=== PATIENT | female | born 1985 | race Caucasian/White ===

== ENCOUNTER 2019-11-13 21:06 | Emergency (ER) | payer BC, OTHER, SELFPAY ==
[2019-11-13 21:04] VITALS: BP 152/87; PULSE 100; RESP 18; TEMP 37.3; O2SAT 98
--- NOTE | 2019-11-13 21:16 | ED.WOUNDLAC ---
HPI - Wound/Laceration General Chief Complaint: Wound/Laceration Stated Complaint: R leg lac Time Seen by Provider: 11/13/19 21:08 Source: RN notes reviewed History of Present Illness HPI narrative: Patient presents emergency department from home for right barnes laceration. Patient states that approximate 1 hour prior to arrival she was walking and tripped striking her leg on a piece of plastic that lacerated her right anterior barnes and she denies any other trauma or injury last tetanus shot was in 2017. Patient notes pain to the leg with mild bleeding denies any other symptoms at this time Related Data Home Medications Medication Instructions Recorded Confirmed atorvastatin 10 mg PO DAILY 11/13/19 citalopram [Celexa] 40 mg PO DAILY 11/13/19 ergocalciferol (vitamin D2) 1,250 mcg PO WEEKLY 11/13/19 [Vitamin D2] omeprazole 20 mg PO BID 11/13/19 Allergies Allergy/AdvReac Type Severity Reaction Status Date / Time No Known Allergies Allergy Verified 11/13/19 21:07 Review of Systems Review of Systems: Narrative: Gen.: Denies fevers or chills Musculoskeletal notes mild leg pain Neuro: Denies numbness, tingling, weakness Skin: See HPI Endo: Denies DM PMFSH Past Medical History Medical History (Updated 11/13/19 @ 22:23 by Vernon Rousseau DO) Patient denies significant medical history Social History Social History (Updated 11/13/19 @ 21:16 by Vernon Rousseau DO) Smoking status: Never smoker Exam Narrative: Exam Narrative: APPEARANCE: No acute distress, nontoxic, resting in bed Eyes: EOMI HEENT: Normocephalic, atraumatic, RESPIRATORY: No respiratory distress MUSCULOSKELETAl: No tenderness to the right knee or ankle full range of motion of both, right dorsalis pedis pulse 2+, neurovascular intact NEURO: Awake and alert. Following commands, speech normal, no focal deficits SKIN:: Warm, dry. Normal 6 cm V-shaped laceration over right anterior barnes and is linear and deep with mild venous bleeding and fat protrusion Course Course Emergency Course: Discussed with patient results of workup and diagnosis. Discussed need for follow-up with primary care, proper use of medication, and reasons to return to the emergency department. Patient understands and agrees to current treatment plan Vital Signs Vital signs: Vital Signs Temperature 99.1 F 11/13/19 21:04 Pulse Rate 100 11/13/19 21:04 Respiratory Rate 18 11/13/19 21:04 Blood Pressure 152/87 H 11/13/19 21:04 Pulse Oximetry 98 11/13/19 21:04 Temperature 99.1 F 11/13/19 21:04 Pulse Rate 100 11/13/19 21:04 Respiratory Rate 18 11/13/19 21:04 Blood Pressure 152/87 H 11/13/19 21:04 Pulse Oximetry 98 11/13/19 21:04 Procedures Laceration Laceration 1: ====== Skin Level ====== ====== Subcutaneous Layer ====== ====== Muscle Layer ====== ====== Tendon Layer ====== Dressing: Verbal consent was obtained prior to the procedure. The wound was cleaned with Betadine and irrigated with copious amounts of normal saline. Lidocaine 1% with epinephrine was used for anesthesia. Wound was explored is no foreign body seen. The wound was then closed with 12 3-0 nylon in simple interrupted fashion. A sterile dressing was applied following the procedure. Patient tolerated the procedure well Discharge Plan Discharge Clinical Impression: Laceration of leg, right Patient Disposition: Home, Self-Care Condition: Stable Instructions: Antibiotic Form, Laceration (ED) Additional Instructions: Return for increasing pain bleeding from the wound site infection any other symptoms of concern. Your stitches need to be removed in 7-10 days and you may go to your physician or return to the emergency department for removal. Prescriptions: New ibuprofen [IBU] 600 mg tablet 600 mg PO Q6H PRN (Reason: pain) Qty: 20 RF: 0 No Action citalopram [Celexa] 40 mg Tablet 40 mg PO DAILY RF: 0 atorvastati
[2019-11-13 22:48] VITALS: BP 146/72; PULSE 89; RESP 14; TEMP 36.6; O2SAT 99
== END 2019-11-13 22:52 | disposition home or self-care (01) ==
PROVIDERS: Emergency Provider Emergency Medicine; PCP Family Medicine
DX: S81.811A Laceration without foreign body, right lower leg, initial encounter (principal); W01.118A Fall on same level from slipping, tripping and stumbling with subsequent striking against other sharp object, initial encounter
CPT/HCPCS: 12002; 99283

== ENCOUNTER 2022-02-11 14:32 | Emergency (ER) | payer OTHER, SELFPAY ==
--- NOTE | 2022-02-11 14:51 | ED.BACK ---
HPI - Back Pain/Injury General Chief Complaint: Back Pain/Injury Stated Complaint: back spasm Time Seen by Provider: 02/11/22 14:52 Source: patient, RN notes reviewed and old records reviewed Mode of arrival: ambulatory Limitations: no limitations History of Present Illness HPI Narrative: 36 year old female presents to [facility] care with complaints of having upper back spasms which rotate around her ribs to the epigastric region since last night. Patient states she was rubbing her back against the corner of the wall massaging her back before she went to bed. Reports she woke up around midnight with severe pain to the upper back which radiated around to the epigastric. Pain is increased with breathing deeply with some movements. Patient is concerned she needs her gallbladder checked. She reports that she does not smoke cigarettes she does smoke daily marijuana, small amounts, states history of daily drinking since October 2019 till about 2 weeks ago. Patient reports that she is on control NuvaRing, denies any recent travel or any history of abnormal blood clotting in family MD elicited complaint: back pain and other (epigastric pain, pain with deep breathing) Onset (ago): hour(s) (last pm) Pain scale (0-10): 5 Quality: sharp Related Data Home Medications Medication Instructions Recorded Confirmed atorvastatin 10 mg tablet 10 mg PO DAILY 11/13/19 02/11/22 citalopram 40 mg tablet (Celexa) 40 mg PO DAILY 11/13/19 02/11/22 ergocalciferol (vitamin D2) 1,250 1,250 mcg PO WEEKLY 11/13/19 02/11/22 mcg (50,000 unit) capsule (Vitamin D2) omeprazole 20 mg tablet,delayed 20 mg PO BID 11/13/19 02/11/22 release Allergies Allergy/AdvReac Type Severity Reaction Status Date / Time No Known Allergies Allergy Verified 02/11/22 14:51 Review of Systems Review of Systems: CONSTITUTIONAL: Denies fever, chills, or sweats. EYES: Denies visual changes, redness, or discharge. ENT: Denies rhinorrhea, congestion, sore throat, no otalgia. CARDIOVASCULAR: Denies chest pain, palpitations, or edema. RESPIRATORY: Denies cough or dyspnea. GASTROINTESTINAL:positive for upper epigastric abdominal pain,no nausea, vomiting, or diarrhea. GENITOURINARY: Denies dysuria or hematuria. SKIN: Denies rash or itching. MUSCULOSKELETAL: Thoracic back pain radiating along ribs to epigastric area,no joint pain, or myalgia. NEUROLOGIC: Denies headache, numbness, or weakness. PSYCHIATRIC: Positive for history of anxiety or depression.anxious All systems reviewed & are unremarkable except as noted in HPI and below PMFSH Past Medical History Medical History (Updated 02/13/22 @ 20:19 by Aspen Carrillo NP) Anxiety and depression Elevated cholesterol Surgical History Surgical History (Updated 02/13/22 @ 20:20 by Aspen Carrillo NP) History of hernia surgery as child Social History Social History (Updated 02/11/22 @ 19:17 by Aspen Carrillo NP) Smoking status: Never smoker Alcohol use details: reports drank daily till about 2 weeks ago from october of 2019 Substance use type: marijuana Living arrangements: with family Gender identity (if verbalized by the patient): Female Comments At time of signature, agree with nursing past medical, surgical, social and family history. There is no relevant family history pertinent to the presenting complaint Exam Narrative: GENERAL: Well-appearing, well-nourished, and in no some distress. anxious HEAD: Normocephalic, atraumatic. EYES: PERRLA and EOMI. ENT: Nares clear, clear rhinorrhea no epistaxis. Mucous membranes moist. TM 's normal with good light reflex, throat pink with no lesions or swelling of tonsils NECK: Supple. no lymphadenopathy CHEST: Clear to auscultation. No respiratory distress.SAO2 99% on room air,,Pain to thoracic area of back radiating around to front of chest epigastric area with increase with deep breathing and movement HEART: Regular rate and rhythm. No murmur heard. Normal p
[2022-02-11 14:53] VITALS: BP 142/85; PULSE 102; RESP 18; TEMP 36.3; O2SAT 99
--- NOTE | 2022-02-11 15:10 | ECG_ITS ---
Measurements Intervals [place] Rate: 100 P: 51 MN: 157 QRS: 1 QRSD: 81 T: 10 QT: 329 QTc: 425 Interpretive Statements SINUS TACHYCARDIA POSSIBLE LEFT ATRIAL ENLARGEMENT CONSIDER INFERIOR INFARCT, AGE INDETERMINATE BORDERLINE T WAVE ABNORMALITY- ANTERIOR LEADS BASELINE ARTIFACT- I, III ABNORMAL ECG NO PREVIOUS ECG AVAILABLE FOR COMPARISON Electronically Signed On 02-11-2022 15:55:27 CDT by Jamshid Durham D.O.
== END 2022-02-11 15:48 | disposition short-term general hospital (02) ==
PROVIDERS: Emergency Provider Registered Nurse; PCP Family Medicine
DX: M54.6 Pain in thoracic spine (principal); R10.13 Epigastric pain; F12.90 Cannabis use, unspecified, uncomplicated
CPT/HCPCS: 93005; 99213; G0463

== ENCOUNTER 2022-02-11 15:47 | Emergency (ER) | payer OTHER, SELFPAY ==
[2022-02-11] VITALS (30 sets, daily range): BP systolic 137–155; BP diastolic 77–91; PULSE 87–102; RESP 12–27; TEMP 36.7; O2SAT 96–100
--- NOTE | ~2022-02-11 | XR_ITS ---
XR chest 2V DATE: 02/11/2022 16:58 INDICATION: Upper chest pain with inspiration, cough TECHNIQUE: PA and lateral views COMPARISON: None FINDINGS: Heart size is within normal range. No hilar or mediastinal enlargement. No pulmonary infilt rate or consolidation, pleural effusion or pulmonary vascular congestion or pneumothorax. IMPRESSION: No active cardiopulmonary disease Reviewed, dictated and finalized at location B.
--- NOTE | ~2022-02-11 | CT_ITS ---
EXAMINATION: CTA chest PE abdomen pel DATE: 02/11/2022 20:31 INDICATION: Chest pain, tachycardia and elevated d-dimer. Epigastric pain to palpation. TECHNIQUE: Computed tomography (CT) pulmonary angiogram of the chest was performed with 100 mL Omnipa que-350 intravenous contrast. Additional 3D reconstructions utilizing coronal maximum intensity proje ction (MIP) were performed. CT of the abdomen and pelvis was performed with intravenous contrast util izing the same contrast bolus following a short delay. Automated exposure control and iterative recon struction technique were employed. The dose-length product was 2035.68 mGy-cm. COMPARISON: None FINDINGS: Chest: Good contrast opacification of the pulmonary arteries. There is mild streak artifact from dense contr ast in the superior vena cava and right atrium. Mild respiratory motion at the lung bases which mildl y decreases sensitivity in some of the smaller basilar subsegmental pulmonary arteries. No pulmonary embolism. Mild dependent atelectasis in the bilateral lower lobes. Additional mild discoid atelectasi s in the anterior basilar segment of the left lower lobe. No pneumonia, pulmonary edema, pleural effu agueda or pneumothorax. Heart size is normal. No pericardial effusion. Thoracic aorta is normal in pasha itz with no dissection. No pathologically enlarged thoracic lymphadenopathy. Mild thoracic spondylosi s. Abdomen/pelvis: Diffuse hepatic steatosis. Gallbladder, spleen, pancreas, bilateral adrenal glands and kidneys are no rmal. Bladder, uterus and bilateral adnexa are normal. Likely contraceptive ring at the vaginal vault . Diffuse fatty infiltration of the colonic wall likely related to body habitus. No bowel obstruction . Normal appendix. No free intraperitoneal gas or fluid. No pathologically enlarged abdominal or pelv ic lymphadenopathy. Transitional L1 segment with left-sided hypoplastic riblet, transitional S1 segme nt partially lumbarized on the left. IMPRESSION: 1. No pulmonary embolism or other acute cardiopulmonary disease. 2. No acute intra-abdominal/pelvic process. 3. Diffuse hepatic steatosis. Reviewed, dictated and finalized at location A.
--- NOTE | 2022-02-11 15:54 | ECG_ITS ---
Measurements Intervals [place] Rate: 93 P: 53 GA: 158 QRS: 11 QRSD: 79 T: 29 QT: 332 QTc: 413 Interpretive Statements SINUS RHYTHM POSSIBLE LEFT ATRIAL ENLARGEMENT CONSIDER INFERIOR INFARCT, AGE INDETERMINATE ABNORMAL ECG COMPARED TO ECG 02/11/2022 15:18:52 SINUS RHYTHM NOW PRESENT Electronically Signed On 02-11-2022 19:34:29 CDT by Jamshid Durham D.O.
[2022-02-11 17:23] LABS: Basophils Percent Auto 0.2 % (0.2-1.2); Eosinophils Percent Auto 0.3 % (0-4.4); Hematocrit 38.4 % (37.0-47.0); Hemoglobin 12.6 g/dL (12.0-15.0); Immature Granulocyte Absolute 0.03 K/mm3 (0.00-0.031); Immature Granulocyte Percent A 0.3 % (0-0.5); Lymphocytes Percent Auto 10.8 % (18.3-44.2); Mean Corpuscular HGB Conc 32.8 g/dl (32-36); Mean Corpuscular Volume 94.6 fl (80-100); Mean Platelet Volume 9.5 fl (7.4-10.4); Monocytes Absolute Auto 0.5 K/mm3 (0.1-0.6); Monocytes Percent Auto 5.1 % (2.6-8.5); Neutrophils Absolute Auto 7.7 K/mm3 (1.3-6.7); Neutrophils Percent Auto 83.3 % (45.5-73.1); Platelet Count Result 266 k/mm3 (150-375); Red Blood Count 4.06 M/mm3 (4.2-5.4); Red Cell Distribution Width 13.3 % (11.5-14.5); White Blood Count 9.3 K/mm3 (4.5-10.0)
[2022-02-11 17:33] LABS: Alanine Aminotransferase 47 U/L (6-35); Albumin Level 4.5 g/dL (3.5-5.1); Alkaline Phosphatase 106 U/L (38-126); Anion Gap 10 mmol/L (8-16); Aspartate Amino Transferase 39 U/L (14-36); Bilirubin,Total 0.5 mg/dL (0.2-1.3); Blood Urea Nitrogen 5 mg/dL (7-17); Calcium 9.3 mg/dL (8.4-10.2); Carbon Dioxide 23 mmol/L (22-30); Chloride 102 mmol/L (98-107); Estimated CRCL calculation 110 ml/min; Estimated Glomerular Filt Rate > 60; Glucose 101 mg/dL (65-110); Lipase 170 U/L (23-300); Potassium 3.6 mmol/L (3.4-5.0); Sodium 135 mmol/L (137-145)
[2022-02-11 17:35] LABS: Prothrombin Time 12.6 Seconds (11.1-14.7)
[2022-02-11 17:36] LABS: Partial Thromboplastin Time 24.4 SECONDS (22.3-36.8)
[2022-02-11 17:45] LABS: Troponin I < 0.012 ng/mL (0.000-0.034)
--- NOTE | 2022-02-11 18:20 | ED.CHESTPAIN ---
HPI - Chest Pain General Chief Complaint: Chest Pain <AUGUSTO Cole Last Filed: 02/11/22 19:20> Stated Complaint: chest pain sent from <AUGUSTO Cole Last Filed: 02/11/22 19:20> Time Seen by Provider: 02/11/22 18:10 <AUGUSTO Cole Last Filed: 02/11/22 19:20> History of Present Illness HPI narrative: patient is a 36 year old female here for evaluation of chest pain. Patient states the pain is under her rib cage and will radiate to her back. She notes the pain is severe in nature and is unrelieved by any medication. Has never had a pain like this in the past. She denies any shortness of breath, fevers, chills, nausea, vomiting. Notes that she was a daily drinker in the past but quit about 2 weeks ago. Has never had withdrawal seizures. Was sent from urgent care due to her symptoms. <Sydnie You PA-C - Last Filed: 02/11/22 19:20> Related Data Home Medications: Home Medications Medication Instructions Recorded Confirmed atorvastatin 10 mg tablet 10 mg PO DAILY 11/13/19 02/11/22 citalopram 40 mg tablet (Celexa) 40 mg PO DAILY 11/13/19 02/11/22 ergocalciferol (vitamin D2) 1,250 1,250 mcg PO WEEKLY 11/13/19 02/11/22 mcg (50,000 unit) capsule (Vitamin D2) omeprazole 20 mg tablet,delayed 20 mg PO BID 11/13/19 02/11/22 release <AUGUSTO Cole Last Filed: 02/11/22 19:20> Allergies/Adverse Reactions: Allergies Allergy/AdvReac Type Severity Reaction Status Date / Time No Known Allergies Allergy Verified 02/11/22 14:51 <AUGUSTO Cole Last Filed: 02/11/22 19:20> Review of Systems Review of Systems: Gen.: Denies fevers or chills Eyes: Denies eye pain or visual change ENT: Denies congestion Respiratory: Denies shortness of breath or cough CV: Reports chest pain. GI: Denies abdominal pain nausea, emesis or diarrhea denies burning, urgency, frequency or hematuria Musculoskeletal: Denies back pain or muscle pain Neuro: Denies numbness, tingling, weakness or focal weakness Skin: Denies rash Except as documented, all other systems reviewed and negative <Sydine You PA-C - Last Filed: 02/11/22 19:20> [facility] Past Medical History Medical History: Medical History (Updated 02/13/22 @ 20:19 by Aspen Carrillo NP) Anxiety and depression Elevated cholesterol <AUGUSTO Cole Last Filed: 02/11/22 19:20> Surgical History Surgical History: Surgical History (Updated 02/13/22 @ 20:20 by Aspen Carrillo NP) History of hernia surgery as child <AUGUSTO Cole Last Filed: 02/11/22 19:20> Social History Social History: Social History (Updated 02/11/22 @ 19:17 by Aspen Carrillo NP) Smoking status: Never smoker Alcohol use details: reports drank daily till about 2 weeks ago from october of 2019 Substance use type: marijuana Living arrangements: with family Gender identity (if verbalized by the patient): Female <AUGUSTO Cole Last Filed: 02/11/22 19:20> Exam Narrative: APPEARANCE: Anxious appearing. Head: Normocephalic and atraumatic. EYES: PERRLA/EOMI, conjunctivae clear NOSE: No nasal drainage EARS: External ear normal in appearance THROAT: Oropharynx is clear. Mucous membranes are moist. NECK: Supple. No adenopathy, no masses. RESPIRATORY: Airway patent, respirations nonlabored. Clear to auscultation bilaterally, no rales, rhonchi, wheezing. CARDIOVASCULAR: Regular rate and rhythm without murmurs, rubs, or gallops. ABDOMINAL: tender to palpation in epigastric region. Normoactive bowel sounds. Soft, nontender, nondistended. No rebound tenderness or guarding. MUSCULOSKELETAL: Extremities are warm and well-perfused. Moves all extremities well. No edema. NEURO: Normal speech. No focal neurologic deficits. SKIN: Skin is warm and dry. No rashes. PSYCHIATRIC: Normal affect/mood. <Sydnie Vasquez
[2022-02-11 18:47] LABS: D Dimer 0.64 ug/mL (<0.48)
[2022-02-11] MEDS: SODIUM CHLORIDE 0.9% IV 1,000 ML 999 ML IV CONT (20:17)
[2022-02-11] MEDS: FAMOTIDINE 20 MG/2 ML VIAL IV PUSH (20:17)
[2022-02-11 20:42] LABS: Troponin I < 0.012 ng/mL (0.000-0.034)
[2022-02-11] MEDS: PANTOPRAZOLE SODIUM IV 40 MG VIAL IV PUSH (23:03)
[2022-02-11] MEDS: KETOROLAC 15 MG/ML VIAL (*BKC) IV PUSH (23:03)
== END 2022-02-12 00:20 | disposition home or self-care (01) ==
PROVIDERS: Emergency Medicine; Physician Assistant; Emergency Provider Emergency Medicine; PCP Family Medicine
DX: R10.13 Epigastric pain (principal); K76.0 Fatty (change of) liver, not elsewhere classified
CPT/HCPCS: 36415; 71046; 71275; 74177; 80053; 81025; 83690; 84484; 85025; 85380; 85610; 85730; 93005; 96361; 96365; 96375; 99213; 99284; C9113; G0463; J0131; J1885; J7030; Q9967

== ENCOUNTER 2022-03-20 10:40 | Emergency (ER) | payer OTHER, SELFPAY ==
--- NOTE | ~2022-03-20 | XR_ITS ---
XR foot RT min 3V 03/20/2022 11:09 INDICATION: Right foot pain PROCEDURE: 4 views right foot COMPARISON: No prior studies for comparison. FINDINGS: Fracture, dislocation or subluxation is not identified. 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 Lisfranc joint intact. Small degenerative calcaneal enthesophytes. The soft tissues appear w ithin normal limits. No foreign bodies are identified. IMPRESSION: 1: NO ACUTE BONE OR JOINT ABNORMALITY IDENTIFIED. Reviewed, dictated and finalized at location A.
[2022-03-20 11:00] VITALS: BP 145/92; PULSE 90; RESP 18; TEMP 36.3; O2SAT 99
--- NOTE | 2022-03-20 11:51 | ED.LOWEXIN ---
HPI - Extremity Injury (Lower) General Chief Complaint: Extremity Injury, Lower Stated Complaint: Rt Foot Pain Time Seen by Provider: 03/20/22 10:41 Source: patient Mode of arrival: ambulatory Limitations: no limitations History of Present Illness HPI Narrative: 36-year-old female presents to [facility] with complaints of pain, mild swelling and bruising to the dorsal aspect of her right foot since last night. Patient reports that she was walking at her home when she twisted and rolled her right foot. Patient has not tried taking any [id number] medications for her symptoms. Patient was wearing flip-flops at time of injury MD complaint: foot injury Onset (ago): day(s) (1) Injury: Right: foot Type of Injury: inversion Place: home Relieving factors: nothing Exacerbating factors: movement Other symptoms: none Related Data Home Medications Medication Instructions Recorded Confirmed atorvastatin 10 mg tablet 10 mg PO DAILY 11/13/19 02/11/22 citalopram 40 mg tablet (Celexa) 40 mg PO DAILY 11/13/19 02/11/22 ergocalciferol (vitamin D2) 1,250 1,250 mcg PO WEEKLY 11/13/19 02/11/22 mcg (50,000 unit) capsule (Vitamin D2) omeprazole 20 mg tablet,delayed 20 mg PO BID 11/13/19 02/11/22 release Allergies Allergy/AdvReac Type Severity Reaction Status Date / Time No Known Allergies Allergy Verified 03/20/22 11:25 Review of Systems Constitutional: Constitutional: Denies chills, Denies fatigue, Denies fever(s) and Denies weakness ENT: Denies dizziness Gastrointestinal: Gastrointestinal: Denies diarrhea, Denies nausea and Denies vomiting Musculoskeletal: Musculoskeletal: Reports arthralgias and Reports joint swelling Comments: Right foot pain and swelling Neurologic: Denies dizziness PMFSH Past Medical History Medical History Anxiety and depression Elevated cholesterol Surgical History Surgical History History of hernia surgery as child Social History Social History Smoking status: Never smoker Alcohol use details: reports drank daily till about 2 weeks ago from october of 2019 Substance use type: marijuana Gender identity (if verbalized by the patient): Female Comments At time of signature, I agree with nursing past medical, surgical, social and family history. There is no relevant family history pertinent to the presenting complaint. Exam Const: General: healthy appearing Nutritional Appearance: well nourished Orientation/consciousness: patient oriented x3 Limitations: no limitations Neck: Neck: normal visual inspection Resp: Effort & Inspection: normal respiratory effort and not labored Auscultation: clear to auscultation bilaterally, no crackles, no rales, no rhonchi and no wheezes Cardio: Rate: regular rate Rhythm: regular rhythm Heart sounds: no murmurs Skin: General skin exam: normal color Rashes: no rashes Wounds: no wounds Neuro: Speech: normal speech Extrem: Other: Mild pain, bruising and swelling noted to dorsal aspect of right foot. There are no open wounds or signs of infection noted. Pulses are within normal limits. Psych: Affect: normal affect Attitude: cooperative Course Course Level of Care: Express Care Visit Vital Signs Vital signs: Vital Signs Temperature 36.3 C L 03/20/22 11:00 Pulse Rate 90 03/20/22 11:00 Respiratory Rate 18 03/20/22 11:00 Blood Pressure 145/92 H 03/20/22 11:00 Pulse Oximetry 99 03/20/22 11:00 Oxygen Delivery Room Air 03/20/22 11:00 Temperature 36.3 C L 03/20/22 11:00 Pulse Rate 90 03/20/22 11:00 Respiratory Rate 18 03/20/22 11:00 Blood Pressure 145/92 H 03/20/22 11:00 Pulse Oximetry 99 03/20/22 11:00 Oxygen Delivery Room Air 03/20/22 11:00 MDM - Extremity Injury (Lower) MDM Narrative Medical decision making narrat
== END 2022-03-20 11:57 | disposition home or self-care (01) ==
PROVIDERS: Emergency Provider Nurse Practitioner Family; PCP Family Medicine
DX: M79.671 Pain in right foot (principal); E78.00 Pure hypercholesterolemia, unspecified; F41.9 Anxiety disorder, unspecified; F32.A Depression, unspecified
CPT/HCPCS: 73630; 99213; G0463